=== PATIENT | female | born 1975 | race Caucasian/White ===

== ENCOUNTER 2017-11-16 17:14 | Emergency (ER) | payer OTHER ==
[2017-11-16] MEDS: ACETAMINOPHEN 325 MG TAB PO (19:39)
== END 2017-11-16 22:10 | disposition home or self-care (01) ==
LOC: M ED 17:14
DX: S06.0X0A Concussion without loss of consciousness, initial encounter (principal); S50.02XA Contusion of left elbow, initial encounter; W00.0XXA Fall on same level due to ice and snow, initial encounter; Y92.89 Other specified places as the place of occurrence of the external cause; Y99.0 Civilian activity done for income or pay; Z79.899 Other long term (current) drug therapy; Z87.891 Personal history of nicotine dependence
CPT/HCPCS: 73030

== ENCOUNTER → 2018-09-01 | Outpatient (REF) | payer OTHER | LOC: M LAB REF 21:07 | DX: R50.9 Fever, unspecified (principal) ==

== ENCOUNTER → 2018-09-13 | Outpatient (CLI) | payer OTHER | LOC: M LRY 11:55 | DX: R05 Cough (principal) | CPT/HCPCS: 94640 ==

== ENCOUNTER → 2024-09-28 | Outpatient (CLI) | payer OTHER ==
[~2024-09-28] MED LIST: DOCU10CA PO; FLUTISP; GLUCTAB7 PO; IBUP-1022 PO; MOTR200T44 PO; NEXI20CA PO; PERCOCET PO; VITA100067 PO; ZOFR4TAB14 PO; ZYRT10CA5 PO
== END ==
LOC: M RAD 11:09
PROVIDERS: ATTEND Nurse Practitioner Adult Health
DX: M54.50 Low back pain, unspecified (principal); M47.817 Spondylosis without myelopathy or radiculopathy, lumbosacral region